=== PATIENT | female | born 1975 | race Caucasian/White ===

== ENCOUNTER 2019-12-05 16:40 | Emergency (ER) | payer OTHER ==
[~2019-12-05] VITALS: Ht 167.6 cm; Wt 104.3 kg
[~2019-12-05 16:40] MED LIST: AZITHROMYCIN250 MG PO; DILAUDID4 MG PO; IBUPROFEN800 MG PO; MULTIVITAMINS1 EAC7 PO; PHENERGAN25 MG RC; REGLAN10 MG PO; VITAMIN D400 UNIT PO; XANAX0.5 MG PO; ZOFRAN ODT8 MG PO
[2019-12-05] MEDS ORDERED: OMEPRAZOLE20 MG PO (17:15)
== END 2019-12-05 19:14 | disposition home or self-care (01) ==
LOC: ED 16:40
DX: L76.31 Postprocedural hematoma of skin and subcutaneous tissue following a dermatologic procedure (principal); Z88.0 Allergy status to penicillin; Z88.5 Allergy status to narcotic agent; Z79.899 Other long term (current) drug therapy
CPT/HCPCS: 99283

== ENCOUNTER 2021-01-31 19:03 | Emergency (ER) | payer OTHER ==
[~2021-01-31] VITALS: Ht 167.6 cm; Wt 108.0 kg
[~2021-01-31 19:03] MED LIST changes: +OMEPRAZOLE20 MG PO
[2021-01-31] MEDS ORDERED: ULTRAM50 MG PO (21:15)
== END 2021-01-31 21:35 | disposition home or self-care (01) ==
LOC: ED 19:03
DX: S92.511A Displaced fracture of proximal phalanx of right lesser toe(s), initial encounter for closed fracture (principal); W10.9XXA Fall (on) (from) unspecified stairs and steps, initial encounter; J45.909 Unspecified asthma, uncomplicated; Z88.0 Allergy status to penicillin; Z88.5 Allergy status to narcotic agent; Z79.899 Other long term (current) drug therapy
CPT/HCPCS: 73660; 99283-25

== ENCOUNTER 2021-07-02 15:22 | Emergency (ER) | payer OTHER ==
[~2021-07-02] VITALS: Ht 167.6 cm; Wt 105.2 kg
[~2021-07-02 15:22] MED LIST changes: +ULTRAM50 MG PO
[2021-07-02] MEDS ORDERED: PREDNISONE10 MG PO (18:49)
[2021-07-02] MEDS ORDERED: METHOCARBAMOL500 MG PO (20:09)
== END 2021-07-02 20:47 | disposition home or self-care (01) ==
LOC: ED 15:22
DX: M54.41 Lumbago with sciatica, right side (principal); J45.909 Unspecified asthma, uncomplicated; Z88.0 Allergy status to penicillin; Z88.5 Allergy status to narcotic agent; Z79.899 Other long term (current) drug therapy
CPT/HCPCS: 99283